=== PATIENT | female | born 1930 | race Caucasian/White ===

== ENCOUNTER 2016-03-14 12:42 | Emergency (ER) | payer MEDICARE ==
[~2016-03-14] VITALS: Ht 154.9 cm; Wt 78.9 kg
[2016-03-14 12:51] VITALS: BP 170/83; PULSE 65; RESP 18; TEMP 97.6; O2SAT 99
[2016-03-14] MEDS ORDERED: ACETAMINOPHEN 500 MG TABLET PO ONE (13:00)
[2016-03-14 14:43] VITALS: BP 162/80; PULSE 66; RESP 18; TEMP 97.6; O2SAT 99
== END 2016-03-14 14:43 | disposition home or self-care (01) ==
LOC: SED 12:42
DX: S20.211A Contusion of right front wall of thorax, initial encounter (principal); S40.011A Contusion of right shoulder, initial encounter; V89.2XXA Person injured in unspecified motor-vehicle accident, traffic, initial encounter; Y93.89 Activity, other specified; Y92.89 Other specified places as the place of occurrence of the external cause; Y99.8 Other external cause status
CPT/HCPCS: 71010; 71100; 73030; 99284